=== PATIENT | male | born 1985 | race Caucasian/White ===

== ENCOUNTER 2022-01-25 15:18 | Emergency (ER) | payer SELFPAY ==
[~2022-01-25] VITALS: Ht 177.8 cm; Wt 127.0 kg
[~2022-01-25 15:18] MED LIST: DECADRON4 M2 PO; PANTOPRAZOLE SO40 MG PO; PROTONIX40 MG PO
[2022-01-25] MEDS ORDERED: IBU800 MG PO (15:45)
[2022-01-25] MEDS ORDERED: DECADRON6 M1 PO (15:45)
== END 2022-01-25 15:50 | disposition home or self-care (01) ==
LOC: ED 15:18
DX: J02.9 Acute pharyngitis, unspecified (principal); R05.9 Cough, unspecified; M79.10 Myalgia, unspecified site; Z91.018 Allergy to other foods